=== PATIENT | female | born 1995 | race African-American/Black ===

== ENCOUNTER 2022-12-28 21:12 | Emergency (ER) | payer OTHER ==
[~2022-12-28] VITALS: Ht 170.2 cm; Wt 68.0 kg
[2022-12-28 21:40] VITALS: O2SAT 100
[2022-12-28] MEDS ORDERED: IBUPROFEN 600MG TABLET PO STA (23:03)
[2022-12-29] MEDS ORDERED: BACITRACIN ZINC OINT UDPKT TOP ONE
[2022-12-29] MEDS ORDERED: IBUP-2029 PO (00:30)
[2022-12-29] MEDS ORDERED: BO1 TP (00:30)
[2022-12-29 01:23] VITALS: BP 118/76; PULSE 98; RESP 18; TEMP 98.9
== END 2022-12-29 01:24 | disposition home or self-care (01) ==
LOC: ER 21:12
DX: S90.32XA Contusion of left foot, initial encounter (principal); X58.XXXA Exposure to other specified factors, initial encounter; Y93.89 Activity, other specified; Y92.89 Other specified places as the place of occurrence of the external cause; Y99.8 Other external cause status
CPT/HCPCS: 81025; 73630; 99283; Z7610